=== PATIENT | male | born 1985 | race Caucasian/White ===

== ENCOUNTER 2023-10-07 15:58 | Emergency (ER) | payer OTHER ==
[~2023-10-07] VITALS: Ht 175.3 cm; Wt 90.7 kg
[2023-10-07] MEDS ORDERED: PRED20TA PO (16:33)
[2023-10-07] MEDS ORDERED: CETI10CH PO (16:34)
[2023-10-07] MEDS: methylPREDNISolone 125MG 2ML VIAL IV ONE (16:40)
[2023-10-07] MEDS: FAMOTIDINE 20MG/2ML VIAL IVP ONE (16:40)
[2023-10-07] MEDS: diphenhydrAMINE 50MG/ML VIAL IV ONE (16:40)
[2023-10-07 18:00] VITALS: BP 131/80; TEMP 97.8; O2SAT 96
== END 2023-10-07 18:30 | disposition home or self-care (01) ==
LOC: M ED 15:58
DX: T78.02XA Anaphylactic reaction due to shellfish (crustaceans), initial encounter (principal); Z88.0 Allergy status to penicillin; Z91.013 Allergy to seafood; Z79.52 Long term (current) use of systemic steroids
CPT/HCPCS: 93041; 94760; 96374; 99284; J1200; J2919; S0028